=== PATIENT | female | born 1975 | race Caucasian/White ===

== ENCOUNTER 2022-03-05 18:13 | Emergency (ER) | payer BC, SELFPAY ==
[2022-03-05 18:38] VITALS: BP 99/65; PULSE 64; RESP 16; TEMP 36.2; O2SAT 98; BMI 26.3
--- NOTE | 2022-03-05 19:03 | ED_ITS ---
HPI - General Adult General Chief complaint: Animal Bite Stated complaint: dog bite on mouth Time Seen by Provider: 03/05/22 18:51 Source: patient Mode of arrival: ambulatory Limitations: no limitations History of Present Illness HPI narrative: This is a 46-year-old female presenting to the emergency department with a dog bite to the left upper lip, patient reports she was playing with her dog, small dog and it suddenly the dog bit her. She reports she is up-to-date on a tetanus shot, Patient's dog is up-to-date on immunizations. Patient tells me her lip is cut and it hurts. Lipids been cleansed with sterile dressing. And a wet gauze with saline water is currently applied to the area. This occurred around 6:00pm . Patient denies numbness or tingling. Related Data Allergies Allergy/AdvReac Type Severity Reaction Status Date / Time Unable to Assess Allergy Unverified 03/05/22 19:01 Review of Systems Review of Systems: Constitutional : No Fever, No Chills, Cardiovascular : No Chest Pain, No SOB Respiratory : No Dyspnea Gastrointestinal : No abdominal pain Musculoskeletal : No Joint Swelling Skin : No rash, positive lip laceration Neuro : No Weakness, No Numbness Psych : No SI/HI Yes all other systems are reviewed and are negative [facility] Past Medical History Attestation statement: The following information was validated with the patient. Source: old records reviewed and nursing notes reviewed Social History Social History Advance Directives: No Advance Directives Information Provided: No Physical Exam ED Vital Signs: Vital Signs - 24 hr 03/05/22 18:38 Temperature 97.1 F Pulse Rate 64 Respiratory Rate 16 Blood Pressure 99/65 Pulse Oximetry 98 Oxygen Delivery Method Room Air BMI result Body Mass Index 26.3 vss Appearance: Alert.? Oriented X3.? No acute distress.? Head: Normocephalic, atraumatic, no step-offs or deformities Eyes: Pupils equal, round and reactive to light.? ENT: Pharynx normal.?+ upper left side of lip with laceration. Neck: Normal inspection.? Neck supple.? CVS: Normal heart rate and rhythm.? Pulses normal.? Respiratory: No respiratory distress.? Breath sounds normal.? Abdomen: Soft and nontender.? Skin: Skin warm and dry.? Normal skin color.? Normal skin turgor.? Extremities: No lower extremity edema.? No calf ttp. 5/5 strength to bilateral upper and lower extremities Neuro: Oriented X 3.? No motor deficit.? No sensory deficit. CN 2-12 intact Course Reevaluation(s) Reevaluation #1: I had a long conversation with patient about laceration repair. I explained to her I could attempt here however we do not have plastics year. Patient tells me she would prefer to go to a facility that has plastic surgery. I contacted [facility] the closest facility with plastics who is close to [facility] at this time. Patient tells me she has [place] insurance, reach out to [facility] who accepted transfer. Patient will be transferred to [facility]'s emergency department to the care of , for complex facial laceration that may require Plastic surgery. Patient will go via private vehicle. Time: 19:28 Medical Decision Making MDM Narrative Medical decision making narrative: 1919 46-year-old female presents with dog bite to left upper lip. Dog was up-to-date on immunizations. She is up-to-date on tetanus shot. Physical examination with a dog bite to the left upper lip, evident laceration. Pictures in chart. Plan at this time is to administer ceftriaxone 1 g. Will give Toradol for pain. Medical Records Medical records reviewed: Yes I reviewed the patient's medical records. Lab Data Lab results reviewed: Yes I reviewed the patient's lab results. Critical Care Time Critical Care Time Critical Care Time: Yes Total Critical Care Time: 35 Attestation: I attest to this time spent taking care of the patient, obtaining history, physical, reviewing labs, imaging, speaking to my attending, speaking to specialist. Discharge Plan Discharge Clinical Impression: Laceration of lip, Dog bite Patient Disposition: [facility] Transfer Details: Transfer to [facility] Emergency Department via private vehicle to the service of Dr. Suh
--- NOTE | 2022-03-05 19:12 | PC.NURSE ---
[facility]'s Transfer Line called at 190 per Rika Yu,[place] stated they are closed to Plastic transfers. Called [facility] Transfer Line at 190 per Rika YU,provider speaking to transfer line at this time.
--- NOTE | 2022-03-05 19:28 | PC.NURSE ---
At 1915 accepted patient to [facility] ER to ER. Patient is going by private vehicle all paper work giving to patient for transfer.
[2022-03-05] MEDS: Diphth,Pertus(ACell),Tet Adult 0.5 ML SYRINGE IM (19:39)
[2022-03-05] MEDS: Ketorolac Tromethamine 15 MG/ML VIAL 30 MG IVPUSH (19:40)
[2022-03-05] MEDS: cefTRIAXone sodium 1 GM in 0.9 % Sodium Chloride 50 ML IV (19:40)
== END 2022-03-05 19:56 | disposition short-term general hospital (02) ==
PROVIDERS: Emergency Provider Internal Medicine
DX: S00.571A Other superficial bite of lip, initial encounter (principal); R51.9 Headache, unspecified; W54.0XXA Bitten by dog, initial encounter; Y93.9 Activity, unspecified; Y92.9 Unspecified place or not applicable; Y99.9 Unspecified external cause status; Z79.899 Other long term (current) drug therapy
CPT/HCPCS: 90471; 90715; 96372; 96374; 96375; 99285; J0696; J1885